=== PATIENT | female | born 1965 | race Caucasian/White ===

== ENCOUNTER 2017-08-28 09:10 | Emergency (ER) | payer BC ==
[2017-08-28 09:35] VITALS: BP 133/86
[2017-08-28] MEDS ORDERED: Acetaminophen TAB* 325 MG PO ONE (09:51)
--- NOTE | 2017-08-28 10:09 | UC ---
Ear Complaint HPI - HPI Summary HPI Summary: Pt c/o sudden onset of left ear pain, nasal congestion, generalized malaise X 2- 3 days. - History of Current Complaint Chief Complaint: UCEar Stated Complaint: LFT EAR PAIN Time Seen by Provider: 08/28/17 10:04 Hx Obtained From: Patient Hx Last Menstrual Period: one week ?: No Onset/Duration: Sudden Onset, Lasting Days, Still Present Severity Initially: Mild Severity Currently: Moderate Pain Intensity: 8 Associated Signs/Symptoms: Positive: URI Symptoms - Allergies/Home Medications Allergies/Adverse Reactions: Allergies Allergy/AdvReac Type Severity Reaction Status Date / Time Penicillins Allergy Rash Verified 08/28/17 09:35 avoids NSAIDs AdvReac Bariatric Uncoded 08/28/17 10:08 surgery Home Medications: Home Medications Cyanocobalamin TAB* [Vitamin B12 TAB*] 1,000 mcg PO DAILY 08/28/17 [History Confirmed 08/28/17] metFORMIN* [Glucophage 500 MG TAB *] 500 mg PO DAILY 08/28/17 [History Confirmed 08/28/17] PMH/Surg Hx/FS Hx/Imm Hx Previously Healthy: Yes - Surgical History Surgical History: Yes Surgery Procedure, Year, and Place: ARTHROSCOPIC SX R KNEE. BREAST REDUCTION. LUMPECTOMY-THYROID GLAND. BARIATRIC SX-2012 - Family History Known Family History: Positive: Cardiac Disease - Social History Occupation: Employed Full-time Lives: With Family Alcohol Use: None Substance Use Type: None Smoking Status (MU): Current Every Day Smoker Amount Used/How Often: 1/2 PPD Length of Time of Smoking/Using Tobacco: APPROX 30 YRS. Have You Smoked in the Last Year: Yes Review of Systems Constitutional: Fatigue Skin: Negative Eyes: Negative ENT: Sore Throat, Ear Ache, Sinus Congestion Respiratory: Negative Cardiovascular: Negative Gastrointestinal: Negative Genitourinary: Negative Motor: Negative Neurovascular: Negative Musculoskeletal: Negative Neurological: Negative Psychological: Negative Is Patient Immunocompromised?: No All Other Systems Reviewed And Are Negative: Yes Physical Exam Triage Information Reviewed: Yes Appearance: Ill-Appearing Vital Signs: Initial Vital Signs Temp 97.6 F 08/28/17 09:29 Pulse 88 08/28/17 09:29 Resp 18 08/28/17 09:29 BP 133/86 08/28/17 09:29 Pulse Ox 98 08/28/17 09:29 Vital Signs Reviewed: Yes Eye Exam: Normal ENT Exam: Other ENT: Positive: Nasal congestion, TM bulging, TM red, Other - bilateral ear canal erythematous with mild swelling Dental Exam: Normal Neck exam: Normal Respiratory Exam: Normal Cardiovascular Exam: Normal Abdominal Exam: Normal Musculoskeletal Exam: Normal Neurological Exam: Normal Psychological Exam: Normal Skin Exam: Normal Ear Complaint Course/Dx - Differential Dx/Diagnosis Differential Diagnosis/HQI/PQRI: Otitis Externa, Otitis Media, URI Provider Diagnoses: Otitis externa bilateral. Otits media left ear Discharge - Sign-Out/Discharge Documenting (check all that apply): Patient Departure - Discharge Plan Condition: Stable Disposition: HOME Prescriptions: Azithromycin TAB* [Zithromax TAB (Z-RONEL) 250 mg #6 tabs] 2 tab PO .TODAY, THEN 1 DAILY #1 ronel Ciprofloxacin/Hydrocortisone [Cipro Hc] 2 drp BOTH EARS Q8HR #1 bottle Patient Education Materials: Otitis Externa (ED), Ear Infection (ED) Referrals: Nisha Bishop [Primary Care Provider] - If Needed - Billing Disposition and Condition Condition: STABLE Disposition: Home
== END 2017-08-28 10:20 | disposition home or self-care (01) ==
LOC: UCCORT 09:10
DX: H60.93 Unspecified otitis externa, bilateral (principal); H66.92 Otitis media, unspecified, left ear; F17.210 Nicotine dependence, cigarettes, uncomplicated; Z88.0 Allergy status to penicillin; Z88.6 Allergy status to analgesic agent
CPT/HCPCS: 99212; A9270-GY; G0463